=== PATIENT | female | born 1950 | race Caucasian/White ===

== ENCOUNTER 2016-09-23 22:20 | Inpatient (IN) | payer OTHER, MEDICARE ==
--- NOTE | ~2016-09-23 | HP ---
History And Physical [place] [id number] [facility] [place]. [address] NAME: KACEY ANDREWS : 52 STATUS : ADM IN [facility]#: [id number] AGE: 66 ADM/REG DATE : 09/24/16 MR#: [id number] REPORT SERV DATE: 09/24/16 DICTATED BY: SAE PALACIO DATE: 09/24/16 REPORT STATUS : Draft TRANSCRIBED BY: JAIRON DATE: 09/24/16 DATE OF ADMISSION: 09/24/2016 CHIEF COMPLAINT: A 66-year-old female presenting with right arm cat bite cellulitis. HISTORY OF PRESENTING ILLNESS: The patient's history was obtained through an interview with the patient and her coupled with review of [facility] and [facility] medical records. The patient says that five nights ago, she was bitten by an adult cat that her son keeps in their home. She has noted increasing redness over the last several days, but by morning (day prior to admission), she had increasing soreness, redness, and swelling. Then, on the morning leading up to admission, she went to an outpatient clinic, was placed on Augmentin. Has taken the first two doses today, but has only had increasing pain, swelling, and redness. She describes right forearm discomfort and swelling, soreness quality, 2 to 3 out of 10 severity only. No fevers or chills. No nausea or vomiting. No shortness of breath. No chest pain. REVIEW OF SYSTEMS: Otherwise, a 10-point review of systems was obtained and was negative. PAST MEDICAL HISTORY: Hypertension. PAST SURGICAL HISTORY: 1. 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 2. . ALLERGIES: CODEINE. SOCIAL HISTORY: Quit smoking. Drinks occasional alcohol. Is . Lives in [place], [place]. Has children. FAMILY HISTORY: Father with Alzheimer's dementia, brother with stroke, and sister with diabetes. CURRENT MEDICATIONS: Include Augmentin 875 mg p.o. b.i.d. started on 09/23/2016 morning, biotin, red yeast, multivitamin, Evista, hydrochlorothiazide, fish oil. PHYSICAL EXAMINATION: VITAL SIGNS: Temperature 97.0, pulse 100, blood pressure 143/85, respiratory rate 16, O2 saturation 96% on room air. GENERAL: A pleasant, cooperative female, no evidence of distress. RESPIRATORY: Clear to auscultation at bases. No wheezes, rales, or rhonchi. Normal History And Physical [address] [address] NAME: KACEY ANDREWS : [birth year] STATUS : ADM IN [facility]#: [id number] AGE: 66 ADM/REG DATE : 09/24/16 MR#: [id number] REPORT SERV DATE: 09/24/16 DICTATED BY: SAE PALACIO DATE: 09/24/16 REPORT STATUS : Draft TRANSCRIBED BY: JAIRON DATE: 09/24/16 respiratory effort. CARDIOVASCULAR: Tachycardic, regular rhythm. No murmurs, rubs, or gallops. No extremity edema is appreciated. ABDOMEN: Soft, nontender, nondistended. Normal bowel sounds auscultated throughout. No hepatosplenomegaly. LYMPH: No right axillary lymphadenopathy. No right supraclavicular lymphadenopathy. No cervical lymphadenopathy. DERMATOLOGICAL: The patient's right forearm shows an extensive area of erythema, heat, swelling, and tenderness with an obvious healing cat bite area. There is only very minimal fluctuance under this area, probably not enough to be an overt pus collection? Otherwise warm and dry extremities. No pallor, no cyanosis. LABORATORY DATA: White blood cell count 10.7, hemoglobin 15, hematocrit 42, platelets 160. Sodium 139, potassium 3.4, chloride 98, bicarb 28, BUN 12, creatinine 0.78, glucose 163, lactic acid 1.3. ASSESSMENT AND PLAN: 1. Right arm cat bite cellulitis. Place on IV Zosyn. The patient failed a short course of Augmentin for 24 hours. Obtain an Infectious Disease consult. Question risk for methicillin-resistant Staphylococcus aureus? 2. Hyperglycemia. Check hemoglobin A1c. Place on Accu-Cheks. KPL/MODL Sae Palacio M.D. / [id number] CC: Yovani Hill D.O. F.A.C.P.
--- NOTE | ~2016-09-23 | DS ---
Discharge Summary [facility] [address] [place]. [address] NAME: KACEY ANDREWS : 52 STATUS : ADM IN [facility]#: [id number] AGE: 66 ADM/REG DATE : 09/24/16 MR#: [id number] REPORT SERV DATE: 09/26/16 DICTATED BY: DIXIE CARRINGTON DATE: 09/26/16 REPORT STATUS : Draft TRANSCRIBED BY: MODAmy DATE: 09/26/16 ADMISSION DATE: 09/24/2016 DISCHARGE DATE: 09/26/2016 FINAL HOSPITAL DIAGNOSES: 1. Right upper extremity cellulitis secondary to cat bite. 2. Mild hyperglycemia with normal A1c. CONSULTATIONS: Dr. Dejesus, Infectious Disease. PROCEDURES: None. CURRENT PHYSICAL FINDINGS AND HPI: Please see the dictated H and P by Dr. Baker. In brief, the patient is a 66-year-old, otherwise healthy female, who was bit by a domesticated cat several days prior to admission, had increasing soreness, redness, and erythema despite being started on outpatient p.o. Augmentin. Vital signs at the time of admission; BP was 143/85, temperature was 97, and she has had no significant fever during this hospitalization. LABORATORY DATA: Lab work showed a BMP with a potassium of 3.4, otherwise unremarkable. Random blood sugar was 163, A1c checked on 09/24/2016 was 5.6, and lactate was 1.3. White count was 10.7 initially, followup the following day was 7.6. Blood cultures to this point have been negative. The patient was admitted. She was started initially on IV antibiotics. Specifically Zosyn. She was placed on DVT prophylaxis. Reasonable pain medications were given. Dr. Dejesus discontinued the Zosyn, started her on Unasyn on 09/24/2016. On 09/25/2016, she was already seeing significant resolution of the erythema. On 09/26/2016, it was again markedly improved. Pending ID's recommendations and approval. She will most likely be discharged later today. DISPOSITION: Discharged home. Antibiotics will be per ID's recommendations. HOME MEDICATIONS: We will resume her previous hydrochlorothiazide 25 one per day, multivitamin 1 per day, Evista 60 one per day, fish oil in a.m. and p.m., red yeast rice, and hard nails/biotin capsules. FOLLOWUP: Followup will be p.r.n. nonresolution of her symptoms. She has an upcoming appointment with her PCP, although she had a normal A1c, she did have some mild hyperglycemia. Maximum blood sugar was 225 on 09/25/2016. The remainder of her blood sugars were in the 150 to 160 range. She has a glucometer at home. We will follow numbers and discuss with her PCP at her followup visit next month. TLF/REZAL Dixie Santana Discharge Summary [address] [address] NAME: KACEY ANDREWS : 52 STATUS : ADM IN [facility]#: [id number] AGE: 66 ADM/REG DATE : 09/24/16 MR#: [id number] REPORT SERV DATE: 09/26/16 DICTATED BY: DIXIE CARRINGTON DATE: 09/26/16 REPORT STATUS : Draft TRANSCRIBED BY: JAIRON DATE: 09/26/16 Yovani Carrington / [id number] CC: Yovani cMgowan D.O. F.A.C.P.
--- NOTE | ~2016-09-23 | CN ---
Consultation Report [facility] [address] [place]. [address] NAME: KACEY ANDREWS : 52 STATUS : ADM IN [facility]#: [id number] AGE: 66 ADM/REG DATE : 09/24/16 MR#: [id number] REPORT SERV DATE: 09/24/16 DICTATED BY: GILMAR LIANG DATE: 09/24/16 REPORT STATUS : Draft TRANSCRIBED BY: JAIRON DATE: 09/24/16 INFECTIOUS DISEASE CONSULT DATE OF CONSULTATION: REASON FOR REFERRAL: Evaluation and treatment of cellulitis of the arm due to cat bite. HISTORY OF PRESENT ILLNESS: The patient is a 66-year-old female. She has a history of overall good health, just hypertension. Five days ago, she was playing with her grandson's cat and he bit her on the right forearm about midway up, just one tooth went down deep into her arm. She washed it out, but it began to turn warm and red over the next several days. Yesterday, she was seen in an outpatient setting and started on Augmentin, but after just two doses, she felt like the warmth and redness were worsening, so she came in and got admitted. She has had no fevers, chills, malaise, or flu-like symptoms. Really nothing systemic. She was started on Zosyn about 12 hours ago and she feels like the warmth and redness around had already improved. She has no swelling in her axilla, nothing distal to that bite. PAST MEDICAL HISTORY: Otherwise unremarkable. MEDICATIONS: As mentioned, she has gotten Zosyn. ALLERGIES: SHE HAS NO KNOWN ANTIMICROBIAL ALLERGIES. SOCIAL HISTORY: She normally lives at home. Cares for herself. . Smoked in the past, but has stopped and only drinks occasional alcohol. FAMILY HISTORY: Noncontributory. PHYSICAL EXAMINATION: GENERAL: Nontoxic adult female, in no acute distress. Alert and oriented x3. VITAL SIGNS: Temperature at present 98.4, with a pulse of 90, respirations 16, blood pressure 116/60. Weight 68 kg. HEENT: Sclerae are clear. No oral lesions. NECK: Supple without lymphadenopathy. No axillary lymphadenopathy. LUNGS: Clear. HEART: Regular rate and rhythm without murmur. ABDOMEN: Soft, nontender. Positive bowel sounds. EXTREMITIES: The right forearm dorsal surface has a small scab where the original bite was with several centimeters of erythema extending out circumferentially around it then, that is already beginning to fade. Could feel no fluctuance and was unable to express any drainage from it. No other extremity or skin or soft tissue lesions noted. LABORATORY DATA: White count 10.7, hematocrit 42.1, and platelets 160 with unremarkable Consultation Report [address] [place]. [address] NAME: KACEY ANDREWS : 52 STATUS : ADM IN [facility]#: [id number] AGE: 66 ADM/REG DATE : 09/24/16 MR#: [id number] REPORT SERV DATE: 09/24/16 DICTATED BY: GILMAR LIANG DATE: 09/24/16 REPORT STATUS : Draft TRANSCRIBED BY: JAIRON DATE: 09/24/16 differential on the white count. BUN and creatinine 12 and 0.78. Blood cultures thus far are negative. IMPRESSION: Cellulitis of the arm secondary to a cat bite. We would worry about cat oral timoteo, alpha strep, anaerobes, and pasteurella. It does not appear to be a deep abscess or surgical lesion at this point. RECOMMENDATIONS: 1. We will change the Unasyn to best cover the most likely pathogens. 2. If she improves over the next one to two days, it is possible we can change her back to oral Augmentin and finish up treatment with that. I do not feel the Augmentin "failed" but that she simply needed IV level dosing. 3. Finally, I will follow the patient with you. I appreciate very much your consulting on this patient. SHAZIA Gilmar Liang M.D. / [id number] CC: Yovani Mcgowan D.O. F.A.C.P.
[~2016-09-23 22:20] MED LIST: EVISTA60 PO; HCTZ12.5 PO
[2016-09-24] MEDS ORDERED: EVISTA60 PO (01:09)
[2016-09-24] MEDS ORDERED: Multivit/Min Tab (01:11)
[2016-09-24] MEDS ORDERED: HYDROCHLOROT25 MG PO (01:11)
[2016-09-24] MEDS ORDERED: FISH OIL OTC PO ×2 (01:12→01:14)
[2016-09-24] MEDS ORDERED: RED YEAST (01:14)
[2016-09-24] MEDS ORDERED: Hard Nails (01:15)
[2016-09-24] MEDS ORDERED: AUG875 PO (01:15)
[2016-09-24 01:18] LABS: BASOPHILS 0.2 %; BASOPHILS ABSOLUTE 0.02 10/3/uL (0.0-0.16); EOSINOPHILS 0.3 %; EOSINOPHILS ABSOLUTE 0.03 10/3/uL (0.0-0.53); HEMATOCRIT 42.1 % (36.0-48.0); HEMOGLOBIN 15.2 g/dL (12.0-16.0); IMMATURE GRANULOCYTES 0.2 %; IMMATURE GRANULOCYTES ABSOLUTE 0.02 10/3/uL (0.0-0.11); LYMPHOCYTES 19.3 %; LYMPHOCYTES ABSOLUTE 2.06 10/3/uL (0.67-4.30); MEAN CORPUS HGB CONC 36.1 g/dL (32.0-36.0); MEAN CORPUSCULAR VOLUME 94.2 fL (80-100); MEAN PLATELET VOLUME 9.3 fL (9.2-13.0); MONOCYTES 9.2 %; MONOCYTES ABSOLUTE 0.98 10/3/uL (0.21-1.20); NEUTROPHILS 70.8 %; NEUTROPHILS ABSOLUTE 7.55 10/3/uL (2.02-8.40); PLATELET COUNT 160 10/3/uL (150-400); RBC DISTRIBUTION WIDTH 12.4 % (12.0-16.0); RED CELL COUNT 4.47 10/6/uL (4.0-5.6); WHITE BLOOD CELLS 10.7 10/3/uL (4.5-10.5)
[2016-09-24 01:21] LABS: ER CBC TAT 0 Hrs 07 MinsNP; MANUAL DIFF NO %
[2016-09-24 01:43] LABS: CHLORIDE, SERUM 98 MMOL/L (96-112); CO2 (CARBON DIOXIDE) 28 MMOL/L (24-34); CREATININE 0.78 MG/DL (0.55-1.02); GFR AFRICAN AMERICAN 92 ML/MIN (>=60); GFR NON AFRICAN AMERICAN 80 ML/MIN (>=60); POTASSIUM, SERUM 3.4 MMOL/L (3.5-5.3)
[2016-09-24 01:44] LABS: BUN (BLOOD UREA NITROGEN) 12 MG/DL (6-23); CALCIUM, SERUM 9.9 MG/DL (8.5-10.4); GLUCOSE, SERUM 163 MG/DL (60-99); SODIUM, SERUM 139 MMOL/L (135-148)
[2016-09-24 12:41] LABS: BASOPHILS 0.3 %; BASOPHILS ABSOLUTE 0.02 10/3/uL (0.0-0.16); EOSINOPHILS 0.8 %; EOSINOPHILS ABSOLUTE 0.06 10/3/uL (0.0-0.53); HEMATOCRIT 36.5 % (36.0-48.0); HEMOGLOBIN 12.9 g/dL (12.0-16.0); IMMATURE GRANULOCYTES 0.3 %; IMMATURE GRANULOCYTES ABSOLUTE 0.02 10/3/uL (0.0-0.11); LYMPHOCYTES 24.8 %; LYMPHOCYTES ABSOLUTE 1.88 10/3/uL (0.67-4.30); MANUAL DIFF NO %; MEAN CORPUS HGB CONC 35.3 g/dL (32.0-36.0); MEAN CORPUSCULAR HEMOGLOB 33.4 pg (26.0-34.0); MEAN CORPUSCULAR VOLUME 94.6 fL (80-100); MEAN PLATELET VOLUME 9.6 fL (9.2-13.0); MONOCYTES 8.2 %; MONOCYTES ABSOLUTE 0.62 10/3/uL (0.21-1.20); NEUTROPHILS 65.6 %; NEUTROPHILS ABSOLUTE 4.98 10/3/uL (2.02-8.40); PLATELET COUNT 155 10/3/uL (150-400); RBC DISTRIBUTION WIDTH 12.7 % (12.0-16.0); RED CELL COUNT 3.86 10/6/uL (4.0-5.6); WHITE BLOOD CELLS 7.6 10/3/uL (4.5-10.5)
== END 2016-09-26 15:31 | disposition home or self-care (01) | DRG 603 ==
LOC: ER 22:20 → 4SO 09-24 02:04
PROVIDERS: Hospitalist; Nurse Practitioner Acute Care
DX: L03.113 Cellulitis of right upper limb (principal); I10 Essential (primary) hypertension; Z88.5 Allergy status to narcotic agent; Z87.891 Personal history of nicotine dependence; S51.851A Open bite of right forearm, initial encounter; W55.01XA Bitten by cat, initial encounter; Y93.89 Activity, other specified; Y92.009 Unspecified place in unspecified non-institutional (private) residence as the place of occurrence of the external cause; R73.9 Hyperglycemia, unspecified
CPT/HCPCS: 80048; 82962; 83036; 83605; 85025; 87040; 90471; 90714; 96365; 99284; A9270-GY; J0295; J2543